=== PATIENT | male | born 1975 | race Caucasian/White ===

== ENCOUNTER 2017-07-25 01:46 | Emergency (ER) | payer OTHER ==
[2017-07-25 02:04] VITALS: BP 125/71; PULSE 67; TEMP 98; BMI 29.2
--- NOTE | 2017-07-25 02:52 | PDOC ---
History of Present Illness - General Chief Complaint: Sore Throat Stated Complaint: BODY PAIN,FEVER Time Seen by Provider: 07/25/17 02:34 - History of Present Illness Initial Comments: 07/25/17 03:48 The patient is a 41 year old male with no significant PMH who presents for evaluation of sore throat. The patient reports a 2 day history of sore throat with associated intermittent dry cough and body aches. He states that his throat was feeling more sore this evening prompting his presentation to the ED today. He denies fevers, chills, chest pain, SOB, abdominal pain, nausea, vomiting, or changes with urination or bowel movements. Past History - Past Medical History Allergies/Adverse Reactions: Allergies Allergy/AdvReac Type Severity Reaction Status Date / Time No Known Allergies Allergy Verified 07/25/17 02:03 Home Medications: Ambulatory Orders NK [No Known Home Medication] 07/25/17 Other medical history: denies - Suicide/Smoking/Psychosocial Hx Smoking History: Never smoked Review of Systems - Review of Systems Comments:: 07/25/17 03:52 Constitutional: Body aches. No fevers, chills, fatigue, HEENT: Rhinorrhea, Sore Throat. No nasal congestion, visual changes Cardiovascular: No chest pain, syncope, palpitations, lightheadedness Respiratory: Cough, No SOB, Hemoptysis, Gastrointestinal: No Abdominal pain, Nausea, Vomiting, Constipation, Diarrhea, Melena Genitourinary: No Dysuria, Frequency, Urgency, Hesitancy, Hematuria, Flank pain Musculoskeletal: No Myalgia, arthralgia Skin: No rashes, itching, bruising, pallor Neurologic: No Headache, Dizziness, Numbness, Weakness, or Tingling *Physical Exam - Vital Signs Last Vital Signs Temp Pulse Resp BP Pulse Ox 98 F 67 18 125/71 99 07/25/17 02:01 07/25/17 02:01 07/25/17 02:01 07/25/17 02:01 07/25/17 02:01 - Physical Exam Comments: 07/25/17 03:53 General Appearance: Nourished. No Apparent Distress HEENT: EOMI, SARAH. No Pharyngeal Erythema, Tonsillar Exudate, Tonsillar Erythema Neck: No Cervical Lymphadenopathy Respiratory/Chest: Lungs Clear, Normal Breath Sounds. No Crackles, Rales, Rhonchi, Wheezing Cardiovascular: Regular Rhythm, Regular Rate. No Murmur, Gallops, Rubs Gastrointestinal/Abdominal: Normal Bowel Sounds, Soft. No Guarding, Rebound, Tenderness Musculoskeletal: No CVA Tenderness Extremity: Normal Capillary Refill Integumentary: Normal Color, Dry, Warm Neurologic: Fully Oriented, Alert, Normal Mood/Affect, Normal Response, Medical Decision Making - Medical Decision Making 07/25/17 03:55 The patient is a 41 year old male with no significant PMH who presents for evaluation of sore throat. Differential includes but is not limited to: Strep pharyngitis, Influenza, Viral pharyngitis. Given the patient's complaints of sore throat with associated body aches, we will send a strep swab and influenza swab to evaluate and treat him with motrin. We will continue to monitor and reassess. Given his normal physical exam, it is likely his symptoms are due to a viral pharyngitis. 07/25/17 04:12 Strep and influenza are negative here in the ED. The patient reports significant improvement with motrin. His symptoms are likely due to a viral pharyngitis. We are comfortable discharging the patient home with PCP follow up. We discussed the results and the plan with the patient who voiced understanding and is agreeable with the plan. *DC/Admit/Observation/Transfer Diagnosis at time of Disposition: Viral pharyngitis - Discharge Dispostion Disposition: HOME Condition at time of disposition: Improved Admit: No - Patient Instructions Printed Discharge Instructions: DI for Viral Pharyngitis Additional Instructions: Please return to the ER if you experience worsening or concerning symptoms including difficulty breathing or worsening fevers. Please call to schedule a follow up appointment with your primary care provider to discuss your ER visit. You may use over the counter cold medications to help manage your symptoms including motrin or tylenol.
[2017-07-25] MEDS ORDERED: IBUPROFEN 600 MG TABLET (FP) PO ONE ×2 (03:42→03:47)
== END 2017-07-25 04:19 | disposition home or self-care (01) ==
LOC: JER 01:46
DX: J02.9 Acute pharyngitis, unspecified (principal); B97.89 Other viral agents as the cause of diseases classified elsewhere
CPT/HCPCS: 87070; 87430; 87804; 99281-25

== ENCOUNTER 2017-09-14 23:26 | Emergency (ER) | payer OTHER ==
[2017-09-14 23:46] VITALS: BP 112/62; PULSE 63; TEMP 97.7; BMI 28.5
[2017-09-15] MEDS ORDERED: SODIUM CHLORIDE 1,000 ML IV STA (00:50)
[2017-09-15] MEDS ORDERED: FAMOTIDINE 20 MG/50 ML IVPB 20 MG/50 ML MG IVPB ONE (00:50)
--- NOTE | 2017-09-15 00:50 | PDOC ---
History of Present Illness - General History Source: Patient Exam Limitations: No Limitations - History of Present Illness Travel History: No Initial Comments: 09/15/17 00:51 The patient is a 42 year old male, with no significant past medical history, who presents to the emergency department with persistent epigastric pain, diarrhea, and nausea for 3 days. The patient states he developed some "bloating " on Thursday night after eating. He states he developed loose, brown, water, diarrhea about 3 times a day since Thursday. He also reports having epigastric pain, exacerbated after eating or drinking, since Thursday. The patient denies recent travels or sick contacts. He denies chest pain, shortness of breath, headache and dizziness. He denies fever, chills, vomit, and constipation. He denies dysuria, frequency, urgency and hematuria. Allergies: NKDA Past surgical history: none reported Social history: denies tobacco use. Drinks beers on weekends. Patient follows with clinic at [address] [place] [address]. <Gricelda Hennessy - Last Filed: 09/15/17 00:51> <Carmen Kenney - Last Filed: 09/15/17 16:53> - General Chief Complaint: Diarrhea Stated Complaint: STOMACH PAIN Time Seen by Provider: 09/15/17 00:42 Past History <Gricelda Hennessy - Last Filed: 09/15/17 00:51> - Past Medical History COPD: No - Suicide/Smoking/Psychosocial Hx Smoking History: Never smoked <Carmen Kenney - Last Filed: 09/15/17 16:53> - Past Medical History Allergies/Adverse Reactions: Allergies Allergy/AdvReac Type Severity Reaction Status Date / Time No Known Allergies Allergy Verified 09/14/17 23:46 Home Medications: Ambulatory Orders Famotidine [Pepcid] 20 mg PO PRN 09/15/17 Ibuprofen 800 mg PO PRN 09/15/17 Review of Systems - Review of Systems Able to Perform ROS?: Yes Comments:: 09/15/17 00:55 CONSTITUTIONAL: Absent: fever, chills, diaphoresis, generalized weakness, malaise, loss of appetite HEENT: Absent: rhinorrhea, nasal congestion, throat pain, throat swelling, difficulty swallowing, mouth swelling, ear pain, eye pain, visual Changes CARDIOVASCULAR: Absent: chest pain, syncope, palpitations, irregular heart rate, lightheadedness , peripheral edema RESPIRATORY: Absent: cough, shortness of breath, dyspnea with exertion, orthopnea, wheezing, stridor, hemoptysis GASTROINTESTINAL: (+) epigastric pain, abdominal distensionx1, nausea, diarrhea, Absent: vomiting , constipation, melena, hematochezia GENITOURINARY: Absent: dysuria, frequency, urgency, hesitancy, hematuria, flank pain, genital pain MUSCULOSKELETAL: Absent: myalgia, arthralgia, joint swelling SKIN: Absent: rash, itching, pallor HEMATOLOGIC/IMMUNOLOGIC: Absent: easy bleeding, easy bruising, lymphadenopathy, frequent infections ENDOCRINE: Absent: unexplained weight gain, unexplained weight loss, heat intolerance, cold intolerance NEUROLOGIC: Absent: headache, focal weakness or paresthesias, dizziness, unsteady gait, seizure, mental status changes, bladder or bowel incontinence PSYCHIATRIC: Absent: anxiety, depression, suicidal or homicidal ideation, hallucinations. <Gricelda Hennessy - Last Filed: 09/15/17 00:51> *Physical Exam - Vital Signs Last Vital Signs Temp Pulse Resp BP Pulse Ox 97.7 F 63 18 112/62 99 09/14/17 23:44 09/14/17 23:44 09/14/17 23:44 09/14/17 23:44 09/14/17 23:44 - Physical Exam Comments: 09/15/17 00:56 GENERAL: Well developed, well nourished. Awake and alert. No acute distress. HEENT: Normocephalic, atraumatic. PERRLA, EOMI. No conjunctival pallor. Sclera are non- icteric. Moist mucous membranes. Oropharynx is clear. NECK: Supple. Full ROM. No JVD. Carotid pulses 2+ and symmetric, without bruits. No thyromegaly. No lymphadenopathy. CARDIOVASCULAR: Regular rate and rhythm. No murmurs, rubs, or gallops. Distal pulses are 2+ and symmetric. PULMONARY: No evidence of respiratory distress. Lungs clear to auscultation bilaterally. No wheezing, rales or rhonchi. ABDOMINAL: (+) epigastric discomfort to palpation. Soft. Non-distended. No rebound or guarding. No organomegaly. Normoactive bowel sounds. MUSCULOSKELETAL Normal range of motion at all joints. No bony deformities or tenderness. No CVA tenderness. EXTREMITIES: No cyanosis. No clubbing. No edema. No calf tenderness. SKIN: Warm and dry. Normal capillary refill. No rashes. No jaundice. NEUROLOGICAL: Alert, awake, appropriate. Cranial nerves 2-12 intact. Normoreflexic in the upper and lower extremities. Normal speech. Toes are down-going bilaterally. Gait is normal without ataxia. PSYCHIATRIC: Cooperative. Good eye contact. Appropriate mood and affect. <Gricelda Hennessy - Last Filed: 09/15/17 00:51> - Vital Signs Last Vital Signs Temp Pulse Resp BP Pulse Ox 97.7 F 63 18 112/62 99 09/14/17 23:44 09/14/17 23:44 09/14/17 23:44 09/14/17 23:44 09/14/17 23:44 <Carmen Kenney - Last Filed: 09/15/17 16:53> ED Treatment Course - LABORATORY CBC & Chemistry Diagram: 09/15/17 01:00 09/15/17 01:00 <Carmen Kenney - Last Filed: 09/15/17 16:53> Medical Decision Making - Medical Decision Making 09/15/17 16:51 42 yo male with g/o watery brown stools for several days. no sick contacts,no travel outside [place]. -he denies any rectal bleeding,no bloody stools,no fever pt us afebrile, Labs unremarkable benign abd exam imp diarrhea plan pt to return if his symptoms worsen or he dev fever <Carmen Kenney - Last Filed: 09/15/17 16:53> *DC/Admit/Observation/Transfer - Attestations Scribe Attestion: 09/15/17 00:56 Documentation prepared by Gricelda Hennessy, acting as medical office secretary for Carmen Kenney MD <Gricelda Hennessy - Last Filed: 09/15/17 00:51> <Carmen Kenney - Last Filed: 09/15/17 16:53> Diagnosis at time of Disposition: Diarrhea Qualifiers: Diarrhea type: unspecified type Qualified Code(s): R19.7 - Diarrhea, unspecified - Discharge Dispostion Disposition: HOME Condition at time of disposition: Stable - Patient Instructions Printed Discharge Instructions: DI for Diarrhea and Traveler's Diarrhea -- Adult Additional Instructions: If your diarrhea persists or worsens,please return
[2017-09-15 01:18] LABS: BASOPHIL 0.7 % (0-2.0); EOSINOPHIL 3.4 % (0-4.5); MCH 33.1 pg (25.7-33.7); MCHC 34.3 g/dl (32.0-35.9); MEAN CELL VOLUME 96.7 fl (80-96); MEAN PLT VOLUME 9.8 fl (7.5-11.1); PLATELET COUNT 230 K/MM3 (134-434); RDW 12.6 % (11.9-15.9); WHITE BLOOD COUNT 6.4 K/mm3 (4.0-10.0)
[2017-09-15 01:41] LABS: ALBUMIN 3.5 g/dl (3.4-5.0); ALK PHOS 87 U/L (45-117); ANION GAP 7 (8-16); BILIRUBIN,TOTAL 0.4 mg/dL (0.2-1.0); CALCIUM 8.2 mg/dL (8.5-10.1); CO2 27 mmol/L (21-32); CREATININE 0.8 mg/dL (0.7-1.3); GLUCOSE,RANDOM 75 mg/dL (74-106); SGPT/ALT 32 U/L (12-78); TOT PROT 6.9 g/dl (6.4-8.2)
[2017-09-15 01:47] LABS: SGOT/AST 27 U/L (15-37)
[2017-09-15] MEDS ORDERED: DIPHENOXYLATE 2.5/ATROPINE.025 1 COMBO TABLET PO ONE (02:17)
[2017-09-15] MEDS ORDERED: DIPHENOXYLATE 2.5/ATROPINE.025 1 COMBO TABLET ONE (02:31)
[2017-09-15 02:33] LABS: URINE APPEARANCE SLCLOUDY; URINE BILIRUBIN NEGATIVE (NEGATIVE); URINE BLOOD NEGATIVE (NEGATIVE); URINE COLOR YELLOW; URINE GLUCOSE (UA) NEGATIVE (NEGATIVE); URINE KETONE NEGATIVE (NEGATIVE); URINE LEUK ESTERASE NEGATIVE (NEGATIVE); URINE NITRITE NEGATIVE (NEGATIVE); URINE PROTEIN NEGATIVE (NEGATIVE); URINE UROBILINOGEN NEGATIVE mg/dL (0.2-1.0)
[2017-09-15 09:06] LABS: URINE LEUK ESTERASE NEGATIVE (NEGATIVE)
== END 2017-09-15 02:32 | disposition home or self-care (01) ==
LOC: JER 23:26
PROC: 3E0337Z Introduction of Electrolytic and Water Balance Substance into Peripheral Vein, Percutaneous Approach (ICD-10-PCS; principal; 2017-09-14)
DX: R19.7 Diarrhea, unspecified (principal)
CPT/HCPCS: 36415; 80053; 81003; 83690; 85025; 99283-25

== ENCOUNTER 2018-11-07 23:29 | Emergency (ER) | payer OTHER ==
[2018-11-07 23:47] VITALS: BP 129/69; PULSE 79; TEMP 98; BMI 26.9
--- NOTE | 2018-11-08 01:54 | PDOC ---
History of Present Illness - General Chief Complaint: Cold Symptoms Stated Complaint: FEVER RED EYES BODY PAIN Time Seen by Provider: 11/08/18 00:52 History Source: Patient Exam Limitations: No Limitations - History of Present Illness Initial Comments: 11/08/18 01:49 Patient is a 43-year-old male with past medical history complaining of sore throat, itchy red eyes, generalized aches x 2, bilateral ear itching started yesterday. Took some Motrin at time yesterday and Tylenol this morning with no relief of symptoms. For the eyes he has been using Patanol eyedrops no relief of symptoms. Denies sick contacts. Patient denies fever, chills, nausea, vomiting, diarrhea PMD: Dr. Lyons PMHX: neg PSOCHX: neg etoh, drug, cig ALL: PCN (tightness to muscle) GENERAL/CONSTITUTIONAL: [No fever or chills. No weakness. No weight change.] HEAD, EYES, EARS, NOSE AND THROAT: [No change in vision. No ear pain or discharge. (+) sore throat.] CARDIOVASCULAR: [No chest pain or shortness of breath.] RESPIRATORY: [No cough, wheezing, or hemoptysis.] GASTROINTESTINAL: [No nausea, vomiting, diarrhea or constipation. No rectal bleeding.] GENITOURINARY: [No dysuria, frequency, or change in urination.] MUSCULOSKELETAL: (+) joint or muscle swelling or pain. No neck or back pain.] SKIN AND BREASTS: [No rash or easy bruising.] NEUROLOGIC: [No headache, vertigo, loss of consciousness, or loss of sensation.] PSYCHIATRIC: [No depression or anxiety.] ENDOCRINE: [No increased thirst. No abnormal weight change.] HEMATOLOGIC/LYMPHATIC: [No anemia, easy bleeding, or history of blood clots.] ALLERGIC/IMMUNOLOGIC: [No hives or skin allergy. No latex allergy.] GENERAL: [The patient is awake, alert, and fully oriented, in no acute distress. ] HEAD: [Normal with no signs of trauma.] EYES: [Pupils equal, round and reactive to light, extraocular movements intact, sclera anicteric, conjunctiva (+) mildly erythematous.] ENT: [Ears normal, nares patent, oropharynx mild erythema with exudates. Moist mucous membranes.] NECK: [Normal range of motion, supple without lymphadenopathy, JVD, or masses.] LUNGS: [Breath sounds equal, clear to auscultation bilaterally. No wheezes, and no crackles.] HEART: [Regular rate and rhythm, normal S1 and S2 without murmur, rub.] ABDOMEN: [Soft, nontender, normoactive bowel sounds. No guarding, no rebound. No masses.] EXTREMITIES: [Normal range of motion, no edema. No clubbing or cyanosis. No cords, erythema, or tenderness.] NEUROLOGICAL: [Cranial nerves II through XII grossly intact. Normal speech, normal gait.] PSYCH: [Normal mood, normal affect.] SKIN: [Warm, Dry, normal turgor, no rashes or lesions noted.] Past History - Past Medical History Allergies/Adverse Reactions: Allergies Allergy/AdvReac Type Severity Reaction Status Date / Time amoxicillin Allergy Verified 11/07/18 23:44 Home Medications: Ambulatory Orders Methocarbamol [Robaxin -] 1,500 mg PO Q8H PRN #30 tablet 04/13/18 Diphenhydramine HCl [Benadryl -] 50 mg PO Q6H #28 capsule 11/08/18 Ibuprofen [Motrin -] 600 mg PO QID #28 tablet 11/08/18 COPD: No Other medical history: Pt denies - Immunization History Immunization Up to Date: Yes - Suicide/Smoking/Psychosocial Hx Smoking History: Never smoked Have you smoked in the past 12 months: No Information on smoking cessation initiated: No Hx Alcohol Use: No Drug/Substance Use Hx: No *Physical Exam - Vital Signs Last Vital Signs Temp Pulse Resp BP Pulse Ox 98.0 F 79 18 129/69 97 11/07/18 23:45 11/07/18 23:45 11/07/18 23:45 11/07/18 23:45 11/07/18 23:45 Moderate Sedation - Procedure Monitoring Vital Signs: Procedure Monitoring Vital Signs Temperature 98.0 F 11/07/18 23:45 Pulse Rate 79 11/07/18 23:45 Respiratory Rate 18 11/07/18 23:45 Blood Pressure 129/69 11/07/18 23:45 O2 Sat by Pulse Oximetry (%) 97 11/07/18 23:45 Medical Decision Making - Medical Decision Making 11/08/18 01:49 Patient is a 43-year-old male with past medical history complaining of sore throat, itchy red eyes, generalized aches x 2, bilateral ear itching started yesterday. Took some Motrin at time yesterday and Tylenol this morning with no relief of symptoms. For the eyes he has been using Patanol eyedrops no relief of symptoms. Denies sick contacts. Patient denies fever, chills, nausea, vomiting, diarrhea. Symptoms consistent with viral illness versus allergic rhinitis/conjunctivitis. will get decadron, benadryl, rapid strep and flu swab neg strep neg flu I discussed the physical exam findings, ancillary test results and final diagnoses with the patient. I answered all of the patient's questions. The patient was satisfied with the care received and felt comfortable with the discharge plan and treatment plan. The Patient agrees to follow up with the primary care physician within 24-72 hours. *DC/Admit/Observation/Transfer Diagnosis at time of Disposition: Sore throat Allergic rhinitis Qualifiers: Allergic rhinitis trigger: unspecified Allergic rhinitis seasonality: unspecified Qualified Code(s): J30.9 - Allergic rhinitis, unspecified - Discharge Dispostion Disposition: HOME Condition at time of disposition: Stable - Prescriptions Prescriptions: Diphenhydramine HCl [Benadryl -] 50 mg PO Q6H #28 capsule Ibuprofen [Motrin -] 600 mg PO QID #28 tablet - Referrals Referrals: Akua Patel MD [Staff Physician] - - Patient Instructions Printed Discharge Instructions: DI for Allergic Rhinitis Additional Instructions: Your Discharge Instructions: You must call primary care physician within 24 hours to arrange follow-up. Return to the Emergency Department with any new, persistent or worsening symptoms, for fever, chills, SOB, dizziness or any other concerning changes that may occur. - Post Discharge Activity
[2018-11-08] MEDS ORDERED: DEXAMETHASONE SOD PHOSPHATE 10 MG/1 ML VIAL IM ONE (02:03)
[2018-11-08] MEDS ORDERED: KETOROLAC TROMETHAMINE 60 MG/2 ML VIAL IM ONE (02:03)
[2018-11-08] MEDS ORDERED: DEXAMETHASONE SOD PHOSPHATE 10 MG/1 ML VIAL ONE (02:39)
[2018-11-08] MEDS ORDERED: KETOROLAC TROMETHAMINE 60 MG/2 ML VIAL ONE (02:39)
[2018-11-08] MEDS ORDERED: diphenhydrAMINE HCL 25 MG CAPSULE (FP) PO ONE ×2 (03:31→03:36)
== END 2018-11-08 03:58 | disposition home or self-care (01) ==
LOC: JER 23:29
PROC: 3E0233Z Introduction of Anti-inflammatory into Muscle, Percutaneous Approach (ICD-10-PCS; principal; 2018-11-07)
PROC: 3E0233Z Introduction of Anti-inflammatory into Muscle, Percutaneous Approach (ICD-10-PCS; 2018-11-07)
DX: J02.9 Acute pharyngitis, unspecified (principal); J30.9 Allergic rhinitis, unspecified
CPT/HCPCS: 87070; 87804; 87880; 99281-25; J1100